=== PATIENT | female | born 1995 | race African-American/Black ===

== ENCOUNTER 2017-10-14 11:57 | Emergency (ER) | payer SELFPAY ==
[~2017-10-14] VITALS: Ht 167.6 cm; Wt 100.0 kg
[~2017-10-14 11:57] MED LIST: ALL DAY10 MG PO; AMOXICILLIN/PO500 MG PO; AMOXICILLIN500 MG PO; CETIRIZINE10 MG PO; CIPRO500 MG OR; CORTISPORIN OTI10 ML AD; FERR SULFATE325 MG PO; HYDROXYZ HCL25 MG PO; MAXZIDE-2537.5 MG/TA PO; NAPROSYN500 MG PO; PHENTERMINE37.5 M1 PO; PREVACID30 M2 OR; PRILOSEC40 MG OR; ULTRAM50 M1 OR; ULTRAM50 M1 PO; ZOFRAN ODT4 MG SL; ZOFRAN ODT8 MG SL; [UNRECOGNIZED DRUG - REMARK]
[2017-10-14] MEDS ORDERED: TESSALON PER100 MG PO (12:38)
[2017-10-14] MEDS ORDERED: ZITHROMAX250 MG PO (12:38)
[2017-10-14 12:45] VITALS: BP 130/85
== END 2017-10-14 12:45 | disposition home or self-care (01) | DRG 203 ==
LOC: ED 11:57
DX: J40 Bronchitis, not specified as acute or chronic (principal); R05 Cough; R07.0 Pain in throat

== ENCOUNTER 2018-07-04 09:02 | Emergency (ER) | payer SELFPAY ==
[~2018-07-04] VITALS: Ht 167.6 cm; Wt 146.4 kg
[~2018-07-04 09:02] MED LIST changes: +TESSALON PER100 MG PO; +ZITHROMAX250 MG PO
[2018-07-04 09:51] LABS: IMMATURE GRANULOCYTES 0.4 % (0.0-5.0); MEAN CELL VOLUME 65.2 fL CALC (80.0-100.0); MEAN CORPUSCULAR HGB CONC 32.1 g/L CALC (32.0-36.0); NEUT# 7.1 thou/uL (2.00-7.15); RED BLOOD COUNT 5.58 mill/uL (4.20-5.60); RED CELL DISTRI WIDTH 19.3 % (11.5-15.5)
[2018-07-04 09:53] LABS: HEMATOCRIT 36.4 % (37.0-47.0); HEMOGLOBIN 11.7 g/dl (12.0-16.0)
[2018-07-04 09:54] LABS: URINE BILIRUBIN - DIPSTICK NEGATIVE (NEGATIVE); URINE BLOOD DIPSTICK LARGE (NEGATIVE); URINE COLOR RED; URINE GLUCOSE - DIPSTICK NEGATIVE (NEGATIVE); URINE KETONE NEGATIVE (NEGATIVE); URINE LEUK ESTERASE TRACE (NEGATIVE); URINE PROTEIN - DIPSTICK 100 mg/dL (NEG-TRACE); URINE SPECIFIC GRAVITY 1.025
[2018-07-04 09:56] LABS: URINE CLARITY TURBID; URINE NITRITE - DIPSTICK POSITIVE (Negative)
[2018-07-04 10:00] LABS: URINE RBC TNTC RBC/hpf (0-5); URINE SQUAMOUS EPITHELIAL CELL FEW EPI/hpf (0-FEW)
[2018-07-04 10:04] LABS: ALBUMIN 3.9 g/dL (3.2-5.0); ALKALINE PHOSPHATASE 65 u/l (38-126); ANION GAP 13 (6-22 (CALC)); BILIRUBIN, TOTAL 0.3 mg/dL (0.0-1.4); BUN 14 mg/dL (7-17); BUN/CREATININE RATIO 23 (12-20 (CALC)); CARBON DIOXIDE 28 mmol/l (22-30); CHLORIDE 105 mmol/l (95-108); CREATININE 0.6 mg/dL (0.5-1.0); GFR > 60 ML/MIN (>=60 (CALC)); GFR FOR AFR.AMER. > 60 ML/MIN (>=60 (CALC)); LIPASE 155 u/l (23-300); POTASSIUM 4.3 mmol/l (3.5-5.1); SGOT/AST 15 u/l (14-36); SGPT/ALT 23 u/l (9-52); SODIUM 142 mmol/l (137-146); TOTAL PROTEIN 7.1 g/dL (6.3-8.2)
[2018-07-04 17:50] VITALS: BP 123/63
== END 2018-07-04 17:50 | disposition home or self-care (01) | DRG 761 ==
LOC: ED 09:02
PROVIDERS: Family Medicine
DX: N92.0 Excessive and frequent menstruation with regular cycle (principal); R10.31 Right lower quadrant pain; R10.32 Left lower quadrant pain

== ENCOUNTER 2018-09-26 16:00 | Emergency (ER) | payer SELFPAY ==
[~2018-09-26] VITALS: Ht 167.6 cm; Wt 150.0 kg
[~2018-09-26 16:00] MED LIST changes: +AMOXICILLIN500 MG; +AMOXICILLIN500 MG OR; +ZOFRAN ODT8 MG PO
[2018-09-26 16:49] LABS: HEMOGLOBIN 7.9 g/dl (12.0-16.0); IMMATURE GRANULOCYTES 0.5 % (0.0-5.0); MEAN CELL VOLUME 65.3 fL CALC (80.0-100.0); MEAN CORPUSCULAR HGB 20.6 pG CALC (26.0-32.0); MEAN CORPUSCULAR HGB CONC 31.6 g/L CALC (32.0-36.0); NEUT# 5.74 thou/uL (2.00-7.15); RED BLOOD COUNT 3.83 mill/uL (4.20-5.60); RED CELL DISTRI WIDTH 19.2 % (11.5-15.5)
[2018-09-26 17:18] VITALS: BP 124/82
== END 2018-09-26 17:27 | disposition home or self-care (01) | DRG 761 ==
LOC: ED 16:00
PROVIDERS: Family Medicine
DX: N93.9 Abnormal uterine and vaginal bleeding, unspecified (principal); R53.1 Weakness

== ENCOUNTER 2018-09-28 07:00 | Emergency (ER) | payer SELFPAY ==
[~2018-09-28] VITALS: Ht 167.6 cm; Wt 136.4 kg
[2018-09-28 07:44] LABS: IMMATURE GRANULOCYTES 0.4 % (0.0-5.0); MEAN CELL VOLUME 64.5 fL CALC (80.0-100.0); MEAN CORPUSCULAR HGB 20.3 pG CALC (26.0-32.0); MEAN CORPUSCULAR HGB CONC 31.4 g/L CALC (32.0-36.0); NEUT# 4.96 thou/uL (2.00-7.15); RED BLOOD COUNT 3.55 mill/uL (4.20-5.60)
[2018-09-28 07:45] LABS: URINE BILIRUBIN - DIPSTICK NEGATIVE (NEGATIVE); URINE BLOOD DIPSTICK LARGE (NEGATIVE); URINE COLOR RED; URINE GLUCOSE - DIPSTICK NEGATIVE (NEGATIVE); URINE KETONE NEGATIVE (NEGATIVE); URINE LEUK ESTERASE NEGATIVE (NEGATIVE); URINE PH 6.5 (4.5-8.0); URINE PROTEIN - DIPSTICK 100 mg/dL (NEG-TRACE); URINE SPECIFIC GRAVITY >=1.030; URINE UROBILINOGEN - DIPSTICK 0.2 E.U./dL (0.2)
[2018-09-28] MEDS ORDERED: DEPO-PROVER150 MG/ML IM (07:48)
[2018-09-28 07:49] LABS: URINE CLARITY CLOUDY
[2018-09-28 07:52] LABS: URINE NITRITE - DIPSTICK NEGATIVE (Negative); URINE RBC TNTC RBC/hpf (0-5); URINE WBC 0-2 WBC/hpf (0-5)
[2018-09-28 07:56] LABS: COCAINE POSITIVE (NEGATIVE); METHADONE NEGATIVE (NEGATIVE); TETRAHYDROCANNABIONOL NEGATIVE (NEGATIVE)
[2018-09-28 07:57] LABS: BARBITURATES NEGATIVE (NEGATIVE); OXCYCODONE NEGATIVE (NEGATIVE); TRICYLIC ANTIDEPRESSANTS NEGATIVE (NEGATIVE)
[2018-09-28 08:02] LABS: ALBUMIN 3.5 g/dL (3.2-5.0); ALKALINE PHOSPHATASE 48 u/l (38-126); ANION GAP 10 (6-22 (CALC)); BILIRUBIN, TOTAL 0.2 mg/dL (0.0-1.4); BUN 12 mg/dL (7-17); BUN/CREATININE RATIO 22 (12-20 (CALC)); CARBON DIOXIDE 26 mmol/l (22-30); CHLORIDE 108 mmol/l (95-108); CREATININE 0.6 mg/dL (0.5-1.0); GFR > 60 ML/MIN (>=60 (CALC)); GFR FOR AFR.AMER. > 60 ML/MIN (>=60 (CALC)); POTASSIUM 3.9 mmol/l (3.5-5.1); SGOT/AST 22 u/l (14-36); SODIUM 140 mmol/l (137-146); TOTAL PROTEIN 6.4 g/dL (6.3-8.2)
[2018-09-28 08:04] LABS: HEMATOCRIT 22.9 % (37.0-47.0); HEMOGLOBIN 7.2 g/dl (12.0-16.0)
[2018-09-28 08:25] VITALS: BP 114/83
[2018-09-28] MEDS ORDERED: PERCOGESI1 PO (08:46)
[2018-09-28] MEDS ORDERED: KETOROLAC PO (08:46)
== END 2018-09-28 09:38 | disposition home or self-care (01) | DRG 93 ==
LOC: ED 07:00
PROVIDERS: Emergency Medicine
DX: G89.29 Other chronic pain (principal); R51 Headache; R11.0 Nausea; R50.9 Fever, unspecified; N93.8 Other specified abnormal uterine and vaginal bleeding; D64.9 Anemia, unspecified; L30.9 Dermatitis, unspecified; F14.90 Cocaine use, unspecified, uncomplicated

== ENCOUNTER 2018-10-23 00:07 | Emergency (ER) | payer SELFPAY ==
[~2018-10-23] VITALS: Ht 167.6 cm; Wt 159.0 kg
[~2018-10-23 00:07] MED LIST changes: +DEPO-PROVER150 MG/ML IM; +KETOROLAC PO; +PERCOGESI1 PO
[2018-10-23] MEDS ORDERED: PREDNISONE10 MG PO (00:29)
[2018-10-23 01:15] VITALS: BP 144/79
== END 2018-10-23 01:15 | disposition home or self-care (01) | DRG 607 ==
LOC: ED 00:07
DX: L50.9 Urticaria, unspecified (principal)

== ENCOUNTER 2019-09-13 12:03 | Emergency (ER) | payer SELFPAY ==
[~2019-09-13] VITALS: Ht 167.6 cm; Wt 133.3 kg
[~2019-09-13 12:03] MED LIST changes: +PREDNISONE10 MG PO
[2019-09-13] MEDS ORDERED: AMOXICILLIN875 MG PO (12:55)
[2019-09-13 13:00] VITALS: BP 117/71
== END 2019-09-13 13:00 | disposition home or self-care (01) | DRG 153 ==
LOC: ED 12:03
DX: J02.0 Streptococcal pharyngitis (principal)

== ENCOUNTER 2020-09-15 08:38 | Emergency (ER) | payer OTHER ==
[~2020-09-15] VITALS: Ht 167.6 cm; Wt 121.8 kg
[~2020-09-15 08:38] MED LIST changes: +AMOXICILLIN875 MG PO
[2020-09-15] MEDS ORDERED: PHENTERMINE37.5 MG PO (08:54)
[2020-09-15] MEDS ORDERED: LOPRESSOR50 M2 PO (08:57)
[2020-09-15] MEDS ORDERED: AMOXICILLIN500 M2 PO (09:28)
[2020-09-15 10:14] VITALS: BP 129/91
== END 2020-09-15 10:18 | disposition home or self-care (01) | DRG 153 ==
LOC: ED 08:38
DX: J02.9 Acute pharyngitis, unspecified (principal)